=== PATIENT | male | born 1970 | race Caucasian/White ===

== ENCOUNTER 2019-08-24 06:16 | Day surgery (SDC) | payer BC ==
[~2019-08-24] VITALS: Ht 170.2 cm; Wt 74.6 kg
[2019-08-24 06:18] VITALS: BP 127/77
[2019-08-24] MEDS ORDERED: SODIUM CHLORIDE 0.9% 1,000 ML IV ONE (06:40)
--- NOTE | 2019-08-24 06:54 | NUR ---
Pt report given to Everett MOYA.
--- NOTE | 2019-08-24 06:57 | NUR ---
[facility] HAND-OFF REPORT RECEIVED FROM GRIFFIN KEANE. ASSUMING CARE OF PATIENT.
[2019-08-24] MEDS ORDERED: ONDANSETRON 2MG/ML, 2ML ONE (06:58)
[2019-08-24] MEDS ORDERED: MORPHINE SULFATE 4 MG/ML, 1ML ONE (06:59)
[2019-08-24] MEDS ORDERED: PLEASE ENTER ALLERGIES MC SCH (07:00)
[2019-08-24] MEDS ORDERED: MORPHINE SULFATE 4 MG/ML, 1ML IVPush PRN (07:00)
[2019-08-24] MEDS ORDERED: ONDANSETRON 2MG/ML, 2ML IVPush ONE (07:00)
[2019-08-24] MEDS ORDERED: SODIUM CHLORIDE FLUSH 10ML SYR IVF ONE (07:00)
[2019-08-24 07:03] LABS: BASOPHILS # (AUTO) 0.02 x10^3/uL (0-0.1); BASOPHILS % (AUTO) 0 % (0-1); EOSINOPHILS # (AUTO) 0.09 x10^3/uL (0-0.4); EOSINOPHILS % (AUTO) 2 % (1-7); LYMPHOCYTES # (AUTO) 1.64 x10^3/uL (1-3.4); LYMPHOCYTES % (AUTO) 30 % (22-44); MD NO; MEAN CORPUSCULAR HEMOGLOBIN 29.8 pg (27.5-34.5); MEAN CORPUSCULAR HGB CONC 32.8 g/dL (33.2-36.2); MEAN PLATELET VOLUME 7.4 fL (7.4-10.4); MONOCYTES # (AUTO) 0.41 x10^3/uL (0.2-0.8); MONOCYTES % (AUTO) 7 % (2-9); NEUTROPHILS # (AUTO) 3.41 x10^3/uL (1.8-6.8); NEUTROPHILS % (AUTO) 61 % (42-75); PLATELET COUNT 247 x10^3/uL (130-400); RED BLOOD COUNT 4.82 x10^6/uL (4.38-5.82); RED CELL DISTRIBUTION WIDTH 14.1 % (9.4-14.8)
[2019-08-24 07:12] LABS: ALBUMIN 3.7 g/dL (3.4-5.0); ANION GAP 4 mmol/L (5-15); CALCIUM 8.9 mg/dL (8.5-10.1); CHLORIDE 108 mmol/L (98-107); CREATININE 1.03 mg/dL (0.7-1.3)
--- NOTE | 2019-08-24 07:17 | NUR ---
[facility] HAND-OFF REPORT GIVEN TO GRIFFIN MONTES IN PRE-OP. PT MEDICATED PER MAR. COVID SWAB COLLECTED AND SENT TO LAB. WARM BLANKET AND CALL BUTTON PROVIDED.
[2019-08-24 07:33] LABS: INTERNATIONAL NORMALIZED RATIO 1.01 (0.93-1.1); PROTHROMBIN TIME 10.7 Seconds (9.6-11.5)
[2019-08-24] MEDS ORDERED: CHLORHEXIDINE 15 ML UDC ONE (07:49)
[2019-08-24] MEDS ORDERED: CHLORHEXIDINE 15 ML UDC MM ONE (07:57)
[2019-08-24] MEDS ORDERED: PROPOFOL 10 MG/ML, 20ML ONE (08:14)
[2019-08-24] MEDS ORDERED: GLYCOPYRROLATE 0.2MG/1ML, 5ML ONE (08:14)
[2019-08-24] MEDS ORDERED: DEXAMETHASONE 4 MG/ML, 1ML ONE (08:14)
[2019-08-24] MEDS ORDERED: MIDAZOLAM 1 MG/ML, 2ML ONE (08:14)
[2019-08-24] MEDS ORDERED: LIDOCAINE PF 2%, 5ML ONE (08:14)
[2019-08-24] MEDS ORDERED: FENTANYL PF 100 MCG/2ML ONE ×2 (08:14→08:48)
[2019-08-24] MEDS ORDERED: ROCURONIUM 10 MG/ML,10ML ONE (08:14)
[2019-08-24] MEDS ORDERED: BUPIVACAINE/EPI 0.5% 1:200K INFIL ONE (08:29)
[2019-08-24] MEDS ORDERED: OXYcodone 5 MG/5 ML ORAL.SOL UDC ONE (08:49)
[2019-08-24] MEDS: FENTANYL PF 100 MCG/2ML IV PRN ×2 (08:50→09:20)
[2019-08-24] MEDS ORDERED: LABETALOL 5MG/ML, 20ML IV PRN (09:00)
[2019-08-24] MEDS ORDERED: MIDAZOLAM 1 MG/ML, 2ML IV PRN (09:00)
[2019-08-24] MEDS ORDERED: ONDANSETRON 2MG/ML, 2ML IVPush PRN (09:00)
[2019-08-24] MEDS ORDERED: ALBUTEROL/IPRATROPIUM 2.5MG/0.5MG, 3 ML NPPB PRN (09:00)
[2019-08-24] MEDS ORDERED: METOCLOPRAMIDE 5 MG/ML, 2ML IVPush PRN (09:00)
[2019-08-24] MEDS ORDERED: DIPHENHYDRAMINE 50 MG/ML, 1ML IM PRN (09:00)
[2019-08-24] MEDS ORDERED: EPHEDRINE 50 MG/ML, 1ML IM PRN (09:00)
[2019-08-24] MEDS ORDERED: MEPERIDINE/PF 25MG/0.5ML IVPush PRN (09:00)
[2019-08-24] MEDS ORDERED: LORazepam 2 MG/ML, 1ML IVPush PRN (09:00)
[2019-08-24] MEDS ORDERED: OXYcodone 5 MG/5 ML ORAL.SOL UDC PO PRN (09:00)
[2019-08-24] MEDS ORDERED: HALOPERIDOL 5 MG/ML IV PRN (09:00)
[2019-08-24] MEDS ORDERED: KETOROLAC 30 MG/1 ML IVPush PRN (09:00)
[2019-08-24] MEDS ORDERED: HYDROmorphone 1 MG/ML, 1ML INJ IVPush PRN (09:00)
[2019-08-24] MEDS ORDERED: DIAZEPAM 5 MG/ML, 2ML IVPush PRN (09:00)
[2019-08-24] MEDS ORDERED: HYDROcodone/APAP 7.5-325MG/15ML UDC PO PRN (09:00)
[2019-08-24] MEDS ORDERED: DIPHENHYDRAMINE 50 MG/ML, 1ML IVPush PRN (09:00)
[2019-08-24] MEDS ORDERED: MEPERIDINE/PF 25MG/ML,1ML ONE (09:10)
[2019-08-24] MEDS ORDERED: CEFTRIAXONE PMX 1GM/50ML 50 ML ONE (22:21)
[2019-08-24] MEDS ORDERED: FUROSEMIDE 20 MG/2 ML ONE (23:03)
[2019-08-24] MEDS ORDERED: DOXYCYCLINE 100MG TABLET ONE (23:04)
== END 2019-08-24 11:00 | disposition home or self-care (01) ==
LOC: ED 06:51 → OUT 06:51 → EDIP 07:11 → UNDOADMOB 07:11 → EDSTATUS 08:19 → OUT 11:00 → ED 11:00
PROVIDERS: ATTEND Emergency Medicine
DX: K64.3 Fourth degree hemorrhoids (principal); Z11.59 Encounter for screening for other viral diseases
CPT/HCPCS: 36415; 46250; 80048; 82040; 85025; 85610; 87635; 88304; 96374; 96375; 99284; J1100; J2175; J2250; J2270; J2405; J2704; J3010; J7030